=== PATIENT | male | born 1980 | race Caucasian/White ===

== ENCOUNTER 2017-10-10 22:16 | Emergency (ER) | payer MEDICAID ==
[~2017-10-10] VITALS: Ht 177.8 cm; Wt 45.5 kg
[2017-10-11 00:14] VITALS: BP 151/79
== END 2017-10-11 00:16 | disposition home or self-care (01) ==
LOC: EMS 22:17
DX: M70.42 Prepatellar bursitis, left knee (principal)
CPT/HCPCS: 99284